=== PATIENT | male | born 1980 | race Caucasian/White ===

== ENCOUNTER 2017-09-12 21:55 | Emergency (ER) | payer OTHER ==
[~2017-09-12] VITALS: Ht 182.9 cm; Wt 104.3 kg
[2017-09-12] MEDS ORDERED: CLONIDINE HCL0.3 M3 PO (22:03)
[2017-09-12] MEDS ORDERED: KEFLEX500 M1 PO (23:39)
[2017-09-13 00:03] VITALS: BP 138/74
== END 2017-09-13 00:04 | disposition home or self-care (01) ==
LOC: M.ERS 21:55
DX: S81.811A Laceration without foreign body, right lower leg, initial encounter (principal); I10 Essential (primary) hypertension; W26.8XXA Contact with other sharp object(s), not elsewhere classified, initial encounter; Y93.89 Activity, other specified; Y92.89 Other specified places as the place of occurrence of the external cause; Y99.8 Other external cause status